=== PATIENT | female | born 1930 | race Two or more races ===

== ENCOUNTER 2017-10-19 09:32 | Outpatient (CLI) | payer OTHER ==
[~2017-10-19 09:32] MED LIST: AMOX1TAB5 PO; BACTROBAN OINT22 GM TP; EVISTA60 MG; HYZAAR 50-12.1 UDTAB; LOPRESSOR25 MG; METFORMIN HCL500 MG; NABUMETONE500 MG PO; SYNTHROID88 MCG
== END 2017-10-19 09:40 | disposition home or self-care (01) ==
LOC: RAD 09:32
DX: I70.0 Atherosclerosis of aorta (principal)

== ENCOUNTER → 2017-11-01 | Outpatient (CLI) | payer OTHER | END | disposition home or self-care (01) | LOC: NUCLEAR 11:00 | DX: M81.0 Age-related osteoporosis without current pathological fracture (principal) ==

== ENCOUNTER 2018-02-27 11:50 | Emergency (ER) | payer OTHER ==
[~2018-02-27] VITALS: Ht 160 cm; Wt 51.7 kg
[2018-02-27] MEDS ORDERED: SIMVASTATIN20 MG PO (12:05)
[2018-02-27] MEDS ORDERED: LOSARTAN POTASS25 MG PO (12:05)
[2018-02-27] MEDS ORDERED: DORZOLAMIDE HCL10 ML OP (12:06)
[2018-02-27] MEDS ORDERED: ALENDRONATE SOD70 MG PO (12:06)
[2018-02-27] MEDS ORDERED: SENTRALINE PO (12:06)
[2018-02-27] MEDS ORDERED: RANITIDINE HCL300 MG PO (12:07)
== END 2018-02-27 19:24 | disposition home or self-care (01) ==
LOC: ER 11:50
DX: E86.0 Dehydration (principal)

== ENCOUNTER 2022-02-11 11:21 | Inpatient (IN) | payer OTHER ==
[~2022-02-11] VITALS: Ht 152.4 cm; Wt 49.9 kg
[~2022-02-11 11:21] MED LIST changes: +ALENDRONATE SOD70 MG PO; +DORZOLAMIDE HCL10 ML OP; +LOSARTAN POTASS25 MG PO; +RANITIDINE HCL300 MG PO; +SENTRALINE PO; +SIMVASTATIN20 MG PO
== END 2022-02-15 15:27 | disposition home or self-care (01) | DRG 392 ==
LOC: ER 11:21 → MEDI 20:43
PROVIDERS: ADMIT Internal Medicine; ATTEND Internal Medicine
PROC: BW21YZZ Computerized Tomography (CT Scan) of Abdomen and Pelvis using Other Contrast (ICD-10-PCS; principal; 2022-02-11)
DX: K57.32 Diverticulitis of large intestine without perforation or abscess without bleeding (principal); N39.0 Urinary tract infection, site not specified; G30.9 Alzheimer's disease, unspecified; F02.80 Dementia in other diseases classified elsewhere, unspecified severity, without behavioral disturbance, psychotic disturbance, mood disturbance, and anxiety; B96.20 Unspecified Escherichia coli [E. coli] as the cause of diseases classified elsewhere; I10 Essential (primary) hypertension; E11.9 Type 2 diabetes mellitus without complications; E03.9 Hypothyroidism, unspecified